=== PATIENT | male | born 1960 | race Two or more races ===

== ENCOUNTER 2018-04-26 17:55 | Inpatient (IN) | payer MEDICARE, MEDICAID ==
[~2018-04-26] VITALS: Ht 165.1 cm; Wt 68.5 kg
[2018-04-27] VITALS (7 sets, daily range): BP systolic 148–199; BP diastolic 67–86
[2018-04-27] MEDS ORDERED: ASPIR 8181 MG ORAL (02:20)
[2018-04-27] MEDS ORDERED: ACETAMINOPHEN325 M1 ORAL (02:20)
[2018-04-27] MEDS ORDERED: CLONIDINE HCL0.1 MG PO (02:46)
[2018-04-27] MEDS ORDERED: DULCOLAX10 MG RC (02:46)
[2018-04-27] MEDS ORDERED: CALCIUM ACETAT668 MG PO (02:46)
[2018-04-27] MEDS ORDERED: COREG3.125 MG ORAL (02:46)
[2018-04-27] MEDS ORDERED: IBUPROFEN600 MG ORAL (02:46)
[2018-04-27] MEDS ORDERED: GLIPIZIDE5 MG ORAL (02:46)
[2018-04-27] MEDS ORDERED: LEXAPRO20 MG ORAL (02:46)
[2018-04-27] MEDS ORDERED: APRESOLINE100 MG ORAL (02:46)
[2018-04-27] MEDS ORDERED: FUROSEMIDE40 MG ORAL (02:46)
[2018-04-27] MEDS ORDERED: TRAVATAN Z5 ML OP (02:46)
[2018-04-27] MEDS ORDERED: NEPHROVITE1 TAB ORAL (02:46)
[2018-04-27] MEDS ORDERED: ATORVASTATIN CA40 MG ORAL (02:46)
[2018-04-27] MEDS ORDERED: Albuterol/Ipratropium 3ml neb HHN PRN (11:00)
[2018-04-27 11:36] LABS: BASOPHILS % (AUTO) 0.2 % (0.0-2.0); EOSINOPHILS % (AUTO) 1.3 % (0.0-3.0); HEMATOCRIT 28.9 % (42.0-52.0); HEMOGLOBIN 9.7 G/DL (14.2-18.0); LYMPHOCYTES % (AUTO) 24.6 % (20.0-45.0); MEAN CORPUSCULAR VOLUME 94 FL (80-99); MONOCYTES % (AUTO) 8.2 % (1.0-10.0); NEUTROPHILS % (AUTO) 65.8 % (45.0-75.0); PLATELET COUNT 187 K/UL (150-450); RED BLOOD COUNT 3.07 M/UL (4.70-6.10); RED CELL DISTRIBUTION WIDTH 11.7 % (11.6-14.8); WHITE BLOOD COUNT 6.7 K/UL (4.8-10.8)
[2018-04-27 12:04] LABS: ALANINE AMINOTRANSFERASE 39 U/L (12-78); ALBUMIN 3.3 G/DL (3.4-5.0); ALBUMIN/GLOBULIN RATIO 0.9 (1.0-2.7); ALKALINE PHOSPHATASE 97 U/L (46-116); ANION GAP 14 mmol/L (5-15); ASPARTATE AMINO TRANSFERASE 25 U/L (15-37); BILIRUBIN,TOTAL 0.5 MG/DL (0.2-1.0); BLOOD UREA NITROGEN 122 mg/dL (7-18); CALCIUM 8.4 MG/DL (8.5-10.1); CARBON DIOXIDE 23 MMOL/L (21-32); CHLORIDE 100 MMOL/L (98-107); CREATININE 13.1 MG/DL (0.55-1.30); POTASSIUM 5.2 MMOL/L (3.5-5.1); SODIUM 136 MMOL/L (136-145)
--- NOTE | 2018-04-27 12:27 | Diagnostic Imaging Report ---
Indication: Cough Comparison: None A single view chest radiograph was obtained. Findings: There is slight prominence of pulmonary vascularity and heart size with peribronchial cuffing noted. There is no airspace disease. Intramedullary sclerosis noted in the proximal right humerus. IMPRESSION: Query mild CHF. Correlate clinically. 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
[2018-04-27] MEDS: cefTRIAXone 2 GM in D5W 110 ML IVPB SCH (14:55)
[2018-04-27] MEDS ORDERED: GlipiZIDE 5mg tab ORAL SCH (16:30)
[2018-04-27] MEDS: Calcium Acetate 667mg Tab ORAL SCH (16:30)
--- NOTE | 2018-04-27 17:31 | Consultation ---
DATE OF CONSULTATION: 04/27/2018 CONSULTING PHYSICIAN: Jamal Oreilly M.D. REFERRING PHYSICIAN: Woody Gurrola M.D. REASON FOR CONSULTATION: 1. Hyperkalemia. 2. End-stage renal disease, on hemodialysis. 3. Anemia of chronic kidney disease. 4. Hypertension. HISTORY OF PRESENT ILLNESS: The patient is a 57-year-old gentleman, who was transferred from [facility] for management of hemodialysis. It seems that the patient at this outlying residence had declined hemodialysis. As such, he was transferred here for further evaluation and care. Upon presentation, the patient was hyperkalemic, anemic, and hypertensive. He was seen currently during his dialysis session, in no acute distress. PAST MEDICAL HISTORY: 1. End-stage renal disease, on hemodialysis. 2. Hypertension. 3. Anemia of chronic kidney disease. 4. Diabetes mellitus. 5. Hyperlipidemia. PAST SURGICAL HISTORY: AV fistula. ALLERGIES: No known drug allergies. FAMILY HISTORY: Positive for diabetes and hypertension. REVIEW OF SYSTEMS: The patient is not cooperating with answering questions. PHYSICAL EXAMINATION: VITAL SIGNS: Blood pressure 185/86, 97% on room air, respiratory rate 19, pulse 78, and temperature 98.3. GENERAL: The patient is awake and alert, not otherwise in distress. HEENT: Extraocular muscles intact. No lymphadenopathy noted. CARDIOVASCULAR: S1, S2. No rubs or gallops. PULMONARY: Clear to auscultation bilaterally. No rales, rhonchi or wheezes. ABDOMINAL: Nondistended and nontender. EXTREMITY: Trace edema bilaterally. LABORATORY DATA: Laboratories dated 04/27/2018, potassium 5.2, sodium 136, BUN 122, creatinine 13.1, and calcium 8.4. White cell count 6.7, hemoglobin 9.7, and platelet count 187,000. ASSESSMENT AND PLAN: 1. Hyperkalemia. Mild in nature. The patient was seen and examined on hemodialysis. 2. Uremia, BUN 122. The patient was seen and examined during his current hemodialysis session, tolerating well. 3. Anemia of chronic kidney disease. Hemoglobin less than 10. We will hold epogen until blood pressure stabilizes. 4. Hypertension. We will address hypertension post hemodialysis session as he is undergoing a 2.5 liters of ultrafiltration. 5. Secondary hyperparathyroidism. We will check phosphorus level. Jamal Oreilly MD DR: BILLIE JOB#: [id number] CC: ARIAN
[2018-04-27] MEDS: Carvedilol 6.25mg Tab ORAL SCH (20:37)
[2018-04-27] MEDS: Atorvastatin 80mg tab ORAL SCH (20:37)
[2018-04-28 00:30] VITALS: BP 100/51
--- NOTE | 2018-04-28 01:01 | History and Physical Report ---
DATE OF ADMISSION: 04/27/2018 SUBJECTIVE: This is a 57-year-old male, who came to the emergency room following a fall, having a mild stroke, uncontrolled high blood pressure and fluid overload and this patient is dialyzed, who is currently in the bed, looks comfortable, mild short of breath, and having some cough. PAST MEDICAL HISTORY: End-stage renal disease, diabetes, generalized weakness, and diabetic neuropathy. MEDICATIONS: He is taking glyburide, sliding scale, Renagel, and lisinopril. ALLERGIES: NKA. PHYSICAL EXAMINATION: GENERAL: This is a young male, who is currently awake, feeling fine, and was found to have episode. VITAL SIGNS: Blood pressure is 160/90 and pulse is 74. His blood pressure is varying probably 160/90 to 180/90, pulse 74, and respirations 18. No fevers. HEENT: NAD. CHEST: Bilaterally few crackles. CARDIOVASCULAR: Regular rhythm. No gallop. No murmur. ABDOMEN: Soft. Positive bowel sounds. Nontender. EXTREMITIES: CCE. NEUROLOGICAL: Generalized weakness. LABORATORY DATA: The patient's labs are pending. ASSESSMENT: 1. Fluid overload. 2. Congestive heart failure. 3. End-stage renal disease, on hemodialysis. 4. Hypoglycemia. 5. Diabetes. 6. Generalized . PLAN: 1. We will start dialyzing, and we will and start sliding scale and continue to Accu-Chek. 2. Continue bronchodilator treatments. 3. Increase Coreg because his blood pressure is high. 4. Also continue clonidine p.r.n. 5. Discussed with the charge nurse and consider Nephrology consult. Woody Gurrola M.D. DR: FRANCES JOB#: [id number] CC: ARIAN
[2018-04-28 04:08] VITALS: BP 131/60
[2018-04-28] MEDS: Calcium Acetate 667mg Tab ORAL SCH ×2 (05:51→15:55)
[2018-04-28 07:36] LABS: BASOPHILS % (AUTO) 0.5 % (0.0-2.0); EOSINOPHILS % (AUTO) 2.9 % (0.0-3.0); HEMOGLOBIN 9.8 G/DL (14.2-18.0); LYMPHOCYTES % (AUTO) 26.4 % (20.0-45.0); MEAN CORPUSCULAR VOLUME 94 FL (80-99); MONOCYTES % (AUTO) 9.8 % (1.0-10.0); NEUTROPHILS % (AUTO) 60.5 % (45.0-75.0); PLATELET COUNT 180 K/UL (150-450); RED BLOOD COUNT 3.09 M/UL (4.70-6.10); RED CELL DISTRIBUTION WIDTH 11.3 % (11.6-14.8); WHITE BLOOD COUNT 5.1 K/UL (4.8-10.8)
[2018-04-28 08:00] VITALS: BP 166/93
[2018-04-28 08:04] LABS: ANION GAP 10 mmol/L (5-15); BLOOD UREA NITROGEN 65 mg/dL (7-18); CALCIUM 8.4 MG/DL (8.5-10.1); CARBON DIOXIDE 32 MMOL/L (21-32); CHLORIDE 100 MMOL/L (98-107); CREATININE 8.8 MG/DL (0.55-1.30); POTASSIUM 4.4 MMOL/L (3.5-5.1); SODIUM 141 MMOL/L (136-145)
[2018-04-28] MEDS: Nephrovite tab (Rena-Vite) ORAL SCH (08:09)
[2018-04-28] MEDS: Furosemide 40mg tab ORAL SCH (08:09)
[2018-04-28] MEDS: Carvedilol 6.25mg Tab ORAL SCH ×2 (08:10→20:15)
--- NOTE | 2018-04-28 09:38 | Nephrology Progress Note ---
Assessment/Plan Assessment/Plan 1. ESRD- Plan for HD Sat. BUN much improved post HD yesterday 2. Anemia of CKD - EPO SQ x 1 today 3. HTN- improved. Continue current regimen 4. SHPT- add po phos binder with meals Subjective Date patient seen: Apr 28, 2018 Time patient seen: 09:36 Allergies: Coded Allergies: No Known Allergies (Unverified , 04/27/18) All Systems: reviewed and negative except above Subjective Patient resting well in no distress Objective Last 24 Hour Vital Signs Date Time Temp Pulse Resp B/P (MAP) Pulse Ox O2 Delivery O2 Flow Rate FiO2 04/28/18 08:12 166/93 04/28/18 08:10 65 166/93 04/28/18 04:08 97.8 69 20 131/60 96 Room Air 97.8 04/28/18 00:30 98.0 63 20 100/51 98 Room Air 98.0 04/27/18 20:37 61 148/79 04/27/18 20:02 97.9 61 19 148/79 99 Room Air 97.9 04/27/18 16:00 98.3 78 19 185/86 97 Room Air 98.3 04/27/18 15:22 Room Air 04/27/18 14:00 98.3 80 19 180/86 97 Room Air 98.3 04/27/18 13:32 170/86 04/27/18 12:00 98.4 73 19 170/86 97 Room Air 98.4 Intake and Output 04/27/18 04/28/18 19:00 07:00 Output Total 2700 ml Balance -2700 ml Output Hemodialysis UF 2700 ml # Voids 1 Laboratory Tests 04/27/18 11:00: White Blood Count 6.7, Red Blood Count 3.07L, Hemoglobin 9.7L, Hematocrit 28.9L , Mean Corpuscular Volume 94, Mean Corpuscular Hemoglobin 31.5H, Mean Corpuscular Hemoglobin Concent 33.4, Red Cell Distribution Width 11.7, Platelet Count 187, Mean Platelet Volume 6.5, Neutrophils (%) (Auto) 65.8, Lymphocytes (% ) (Auto) 24.6, Monocytes (%) (Auto) 8.2, Eosinophils (%) (Auto) 1.3, Basophils ( %) (Auto) 0.2, Sodium Level 136, Potassium Level 5.2H, Chloride Level 100, Carbon Dioxide Level 23, Anion Gap 14, Blood Urea Nitrogen 122H, Creatinine 13.1H, Estimat Glomerular Filtration Rate 4.0, Glucose Level 80, Calcium Level 8.4L, Total Bilirubin 0.5, Aspartate Amino Transf (AST/SGOT) 25, Alanine Aminotransferase (ALT/SGPT) 39, Alkaline Phosphatase 97, Troponin I 0.000, Pro-B -Type Natriuretic Peptide 6002H, Total Protein 7.0, Albumin 3.3L, Globulin 3.7, Albumin/Globulin Ratio 0.9L 04/28/18 06:15: White Blood Count 5.1, Red Blood Count 3.09L, Hemoglobin 9.8L, Hematocrit 29.0L , Mean Corpuscular Volume 94, Mean Corpuscular Hemoglobin 31.7H, Mean Corpuscular Hemoglobin Concent 33.7, Red Cell Distribution Width 11.3L, Platelet Count 180, Mean Platelet Volume 7.7, Neutrophils (%) (Auto) 60.5, Lymphocytes (%) (Auto) 26.4, Monocytes (%) (Auto) 9.8, Eosinophils (%) (Auto) 2.9, Basophils (%) (Auto) 0.5, Sodium Level 141, Potassium Level 4.4, Chloride Level 100, Carbon Dioxide Level 32, Anion Gap 10, Blood Urea Nitrogen 65H, Creatinine 8.8H, Estimat Glomerular Filtration Rate 6.3, Glucose Level 90, Calcium Level 8.4L, Phosphorus Level 5.2H Height (Feet): 5 Height (Inches): 5.00 Weight (Pounds): 152 General Appearance: no apparent distress, alert EENT: normal ENT inspection Neck: normal alignment, supple Cardiovascular: normal rate, regular rhythm Respiratory/Chest: lungs clear, normal breath sounds Abdomen: non tender, soft Edema: no edema noted Arm (L), no edema noted Arm (R), no edema noted Leg (L), no edema noted Leg (R), no edema noted Pedal (L), no edema noted Pedal (R), no edema noted Generalized Jamal Oreilly M.D. Apr 28, 2018 09:38
[2018-04-28 12:00] VITALS: BP 182/72
[2018-04-28] MEDS: cefTRIAXone 2 GM in D5W 110 ML IVPB SCH (12:46)
--- NOTE | 2018-04-28 13:10 | Cardiology Report ---
APPROVED REPORT EKG Measurement Heart [id number] Sinus rhythm with premature atrial complexes in a pattern of bigeminy Rightward axis Borderline ECG
[2018-04-28 16:00] VITALS: BP 172/87
[2018-04-28 20:00] VITALS: BP 159/82
[2018-04-28] MEDS: Atorvastatin 80mg tab ORAL SCH (20:14)
[2018-04-28] MEDS ORDERED: Epogen (for ESRD on dialysis) SUBQ SCH (21:00)
[2018-04-29] VITALS: BP 187/70
--- NOTE | 2018-04-29 01:45 | Progress Note ---
DATE: 04/28/2018 SUBJECTIVE: This is an elderly male, sitting in the bed, comfortable, short of breath is improving. OBJECTIVE: VITAL SIGNS: Blood pressure is 130/70, pulse 60s, respirations 18, no fever. HEENT: NAD. CHEST: Bilaterally few crackles. CARDIOVASCULAR: Regular rhythm. No gallop, no murmur. ABDOMEN: Soft. Positive bowel sounds. Nontender. EXTREMITIES: No edema. GENITOURINARY: Deferred. LABORATORY DATA: Laboratory examination . ASSESSMENT: 1. Fluid overload. 2. Congestive heart failure. 3. Hypertension. 4. Diabetes. 5. Generalized weakness. PLAN: We recommend to continue hemodialysis. Continue current medical treatment. PT and OT. Check labs. Woody Gurrola M.D. DR: DANGELO JOB#: [id number] CC:
[2018-04-29 04:00] VITALS: BP 180/69
[2018-04-29] MEDS: Calcium Acetate 667mg Tab ORAL SCH ×2 (06:26→15:49)
[2018-04-29 08:00] VITALS: BP 195/84
--- NOTE | 2018-04-29 08:24 | Nephrology Progress Note ---
Assessment/Plan Assessment/Plan 1. ESRD- HD ordered for today - BUN and K+ much improved after HD on - OK for DC from renal point after HD today completed 2. Anemia of CKD - s/p EPO SQ 3. HTN- will adjust po meds today 4. SHPT-po phos binder with meals Subjective Date patient seen: Apr 29, 2018 Time patient seen: 08:22 ROS Limited/Unobtainable: No Allergies: Coded Allergies: No Known Allergies (Unverified , 04/27/18) Subjective Patient resting well. Syas feels well. No CP or SOB Objective Last 24 Hour Vital Signs Date Time Temp Pulse Resp B/P (MAP) Pulse Ox O2 Delivery O2 Flow Rate FiO2 04/29/18 08:02 96 Room Air 21 04/29/18 08:00 Room Air 21 04/29/18 07:54 67 16 Room Air 21 04/29/18 06:26 180/69 04/29/18 04:00 98.3 59 19 180/69 97 Room Air 98.3 04/29/18 00:00 98.4 65 19 187/70 98 98.4 04/28/18 23:41 187/70 04/28/18 21:08 98 Room Air 04/28/18 21:07 64 16 Room Air 21 04/28/18 20:15 65 179/83 04/28/18 20:00 98.8 65 19 159/82 100 Room Air 98.8 04/28/18 16:00 98.9 61 172/87 98.9 04/28/18 15:55 172/87 04/28/18 12:00 99.0 76 182/72 99.0 04/28/18 11:38 60 16 Room Air 21 Intake and Output 04/28/18 04/29/18 19:00 07:00 Intake Total 480 ml 120 ml Balance 480 ml 120 ml Intake Oral 480 ml 120 ml Height (Feet): 5 Height (Inches): 5.00 Weight (Pounds): 158 General Appearance: no apparent distress, alert EENT: normal ENT inspection Neck: normal alignment, supple Cardiovascular: normal rate, regular rhythm Respiratory/Chest: lungs clear, normal breath sounds Abdomen: non tender, soft Edema: no edema noted Arm (L), no edema noted Arm (R), no edema noted Leg (L), no edema noted Leg (R), no edema noted Pedal (L), no edema noted Pedal (R), no edema noted Generalized Jamal Oreilly M.D. Apr 29, 2018 08:24
[2018-04-29] MEDS: Carvedilol 6.25mg Tab ORAL SCH ×2 (08:34→20:13)
[2018-04-29] MEDS: Nephrovite tab (Rena-Vite) ORAL SCH (08:34)
[2018-04-29] MEDS: Furosemide 40mg tab ORAL SCH (08:34)
[2018-04-29 12:00] VITALS: BP 143/47
[2018-04-29] MEDS: cefTRIAXone 2 GM in D5W 110 ML IVPB SCH (12:59)
--- NOTE | 2018-04-29 13:48 | Physician Query ---
--------- THIS DOCUMENT IS A PERMANENT PART OF THE MEDICAL RECORD --------- PLEASE COMPLETE THE DOCUMENT BEFORE SIGNING Dear Dr. Gurrola Date:04/29/2018 Healthcare Specialist/CDS Name: Kate Groves Healthcare Specialist / CDS Phone # [phone] Exercise your independent professional judgment when responding to query. Question asked do not imply a particular answer is desired/expected Clinical Documentation States: "Heart Failure / CHF" documented in H&P and progress notes Clinical Findings Show: pro BNP: 6002, Diuretic: Furosemide Can you Please Clarify the specificity of CHF: Acuity [] Acute [] Chronic [] Acute on Chronic Type [] Systolic [] Diastolic [] Systolic & Diastolic (Combined) [] Left Heart failure [] Other: Etiology [] CHF due to Hypertension [] Cardiomyopathy [] Valvular Heart Disease [] Coronary Artery Disease [] Unable to determine [] Other: Condition Present on Admission: [] Yes [] No []Clinically Undeterminable Please also document in your Progress Notes and/or Discharge Summary and indicate if the condition was present on admission. ARIAN
[2018-04-29 16:00] VITALS: BP 148/53
--- NOTE | 2018-04-29 18:00 | Progress Note ---
DATE: 04/28/2018 SUBJECTIVE: The patient is an elderly male who is currently awake, feeling better, has been dialyzed. Blood pressure is better controlled now. OBJECTIVE: VITAL SIGNS: Blood pressure is 140/90, pulse 60, respiratory rate 18. No fever. SKIN: Good skin turgor. CHEST: Bilaterally few crackles on bases. CARDIOVASCULAR: Regular rhythm. ABDOMEN: Soft. EXTREMITIES: CCE. NEUROLOGIC: No focal deficits. ASSESSMENT: 1. Fluid overload. 2. Congestive heart failure. 3. Uncontrolled blood pressure . 4. Endstage renal disease, on hemodialysis 5. Generalized weakness. PLAN: We will currently continue current treatment. Discharge plan to alf. Woody Gurrola M.D. DR: Sara JOB#: [id number] CC:
[2018-04-29 20:00] VITALS: BP 157/67
[2018-04-29] MEDS: Atorvastatin 80mg tab ORAL SCH (20:13)
[2018-04-30] VITALS (7 sets, daily range): BP systolic 137–166; BP diastolic 60–72
[2018-04-30] MEDS: Calcium Acetate 667mg Tab ORAL SCH ×2 (06:35→17:25)
[2018-04-30 07:13] LABS: ANION GAP 7 mmol/L (5-15); BLOOD UREA NITROGEN 64 mg/dL (7-18); CALCIUM 8.5 MG/DL (8.5-10.1); CARBON DIOXIDE 33 MMOL/L (21-32); CHLORIDE 99 MMOL/L (98-107); CREATININE 8.3 MG/DL (0.55-1.30); POTASSIUM 4.7 MMOL/L (3.5-5.1); SODIUM 139 MMOL/L (136-145)
[2018-04-30] MEDS: Nephrovite tab (Rena-Vite) ORAL SCH (09:05)
[2018-04-30] MEDS: Carvedilol 6.25mg Tab ORAL SCH ×2 (09:05→21:00)
[2018-04-30] MEDS: Furosemide 40mg tab ORAL SCH (09:06)
--- NOTE | 2018-04-30 09:28 | Nephrology Progress Note ---
Assessment/Plan Assessment/Plan 1. ESRD- will place patient on MWF schedule now - BUN and K+ much improved after HD - OK for DC from renal point 2. Anemia of CKD - s/p EPO SQ 3. HTN- improved. Add Lisinopril 4. SHPT-po phos binder with meals Subjective Date patient seen: Apr 30, 2018 Time patient seen: 09:26 ROS Limited/Unobtainable: No Allergies: Coded Allergies: No Known Allergies (Unverified , 04/27/18) All Systems: reviewed and negative except above Subjective Patient resting well. No CP or SOB Objective Last 24 Hour Vital Signs Date Time Temp Pulse Resp B/P (MAP) Pulse Ox O2 Delivery O2 Flow Rate FiO2 04/30/18 09:06 66 165/60 04/30/18 09:05 66 165/60 04/30/18 08:00 97.7 66 20 165/60 98 Room Air 97.7 04/30/18 04:00 98.3 60 19 153/71 96 Room Air 98.3 04/30/18 00:00 98.6 63 19 148/65 95 Room Air 98.6 04/29/18 20:13 65 157/67 04/29/18 20:00 99.2 65 19 157/67 97 Room Air 99.2 04/29/18 19:30 62 18 Room Air 21 04/29/18 16:00 98.3 60 19 148/53 97 Room Air 98.3 04/29/18 14:18 Room Air 21 04/29/18 12:00 98.0 60 19 143/47 98 Room Air 98.0 04/29/18 09:35 Room Air 21 Intake and Output 04/29/18 04/30/18 19:00 07:00 Intake Total 590 ml 240 ml Output Total 2700 ml 250 ml Balance -2110 ml -10 ml Intake Oral 480 ml 240 ml IV Total 110 ml Output Urine Total 200 ml 250 ml Hemodialysis UF 2500 ml Laboratory Tests 04/30/18 05:45: Sodium Level 139, Potassium Level 4.7, Chloride Level 99, Carbon Dioxide Level 33H, Anion Gap 7, Blood Urea Nitrogen 64H, Creatinine 8.3H, Estimat Glomerular Filtration Rate 6.7, Glucose Level 86, Calcium Level 8.5 Height (Feet): 5 Height (Inches): 5.00 Weight (Pounds): 158 General Appearance: no apparent distress, alert EENT: normal ENT inspection Neck: normal alignment, supple Cardiovascular: normal rate, regular rhythm Respiratory/Chest: normal breath sounds, no respiratory distress Abdomen: non tender, soft Extremities: non-tender, normal inspection Edema: no edema noted Arm (L), no edema noted Arm (R), no edema noted Leg (L), no edema noted Leg (R), no edema noted Pedal (L), no edema noted Pedal (R), no edema noted Generalized Jamal Oreilly M.D. Apr 30, 2018 09:28
[2018-04-30] MEDS: Lisinopril 20mg tab ORAL SCH (12:04)
[2018-04-30] MEDS: cefTRIAXone 2 GM in D5W 110 ML IVPB SCH (12:08)
--- NOTE | 2018-04-30 12:59 | Infectious Diseases Prog Note ---
Assessment/Plan Problems: (1) Acute bronchitis Assessment & Plan: will start levaquin for five days, continue bronchodilators (2) CHF (congestive heart failure) Assessment & Plan: continue HD as per renal, monitor weight (3) Diabetes mellitus Assessment & Plan: recommend tight glycemic control to keep blood glucose between 100-140 (4) Fluid overload Assessment & Plan: improving with HD , renal is following Subjective Allergies: Coded Allergies: No Known Allergies (Unverified , 04/27/18) Objective Vital Signs Last 24 Hour Vital Signs Date Time Temp Pulse Resp B/P (MAP) Pulse Ox O2 Delivery O2 Flow Rate FiO2 04/30/18 12:04 137/62 04/30/18 09:06 66 165/60 04/30/18 09:05 66 165/60 04/30/18 08:00 97.7 66 20 165/60 98 Room Air 97.7 04/30/18 04:00 98.3 60 19 153/71 96 Room Air 98.3 04/30/18 00:00 98.6 63 19 148/65 95 Room Air 98.6 04/29/18 20:13 65 157/67 04/29/18 20:00 99.2 65 19 157/67 97 Room Air 99.2 04/29/18 19:30 62 18 Room Air 21 04/29/18 16:00 98.3 60 19 148/53 97 Room Air 98.3 04/29/18 14:18 Room Air 21 Height (Feet): 5 Height (Inches): 5.00 Weight (Pounds): 158 Laboratory Tests Test 04/30/18 05:45 Sodium Level 139 MMOL/L (136-145) Potassium Level 4.7 MMOL/L (3.5-5.1) Chloride Level 99 MMOL/L (98-107) Carbon Dioxide Level 33 MMOL/L (21-32) H Anion Gap 7 mmol/L (5-15) Blood Urea Nitrogen 64 mg/dL (7-18) H Creatinine 8.3 MG/DL (0.55-1.30) H Estimat Glomerular Filtration Rate 6.7 mL/min (>60) Glucose Level 86 MG/DL (74-106) Calcium Level 8.5 MG/DL (8.5-10.1) Current Medications Medications (Trade) Dose Ordered Sig/Lis Route PRN Reason Start Time Stop Time Status Last Admin Dose Admin Acetaminophen (Tylenol) 650 mg Q4H PRN ORAL Mild Pain/Temp > 100.5 04/27/18 10:45 05/27/18 10:44 Albuterol/ Ipratropium (Albuterol/ Ipratropium) 3 ml Q6H PRN HHN Shortness of Breath 04/27/18 11:00 05/02/18 10:59 Amlodipine Besylate (Norvasc) 10 mg DAILY ORAL 04/29/18 09:00 05/29/18 08:59 04/30/18 09:06 Atorvastatin Calcium (Lipitor) 80 mg BEDTIME ORAL 04/27/18 21:00 05/27/18 20:59 04/29/18 20:13 Bisacodyl (Dulcolax) 10 mg DAILYPRN PRN RECTAL Constipation 04/27/18 10:45 05/27/18 10:44 Calcium Acetate (Phoslo) 667 mg BIAC ORAL 04/27/18 16:30 05/27/18 16:29 04/30/18 06:35 Carvedilol (Coreg) 6.25 mg EVERY 12 HOURS ORAL 04/27/18 21:00 05/27/18 20:59 04/30/18 09:05 Ceftriaxone Sodium 2 gm/ Dextrose 110 ml @ 220 mls/hr Q24H IVPB 04/27/18 12:00 05/04/18 11:59 04/30/18 12:08 Clonidine HCl (Catapres Tab) 0.1 mg Q6H PRN ORAL For High Blood Pressure 04/27/18 10:45 05/27/18 10:44 04/29/18 06:26 Epoetin Luis (Procrit (for ESRD on dialysis)) 5,000 units TUE-TUE-TUE SUBQ 04/28/18 21:00 05/28/18 20:59 04/28/18 20:15 Escitalopram Oxalate (Lexapro) 20 mg DAILY ORAL 04/28/18 09:00 05/28/18 08:59 04/30/18 09:06 Furosemide (Lasix) 40 mg DAILY ORAL 04/28/18 09:00 05/28/18 08:59 04/30/18 09:06 Lisinopril (Prinivil) 20 mg DAILY ORAL 7/1/18 10:00 05/30/18 09:59 04/30/18 12:04 Vitamin B Complex/ Vit C/Folic Acid (Nephrovite) 1 tab DAILY ORAL 04/28/18 09:00 05/28/18 08:59 04/30/18 09:05 Ivan Guthrie M.D. Apr 30, 2018 12:59
[2018-04-30] MEDS: Atorvastatin 80mg tab ORAL SCH ×2 (21:00→21:03)
--- NOTE | 2018-04-30 22:00 | Consultation ---
DATE OF CONSULTATION: INFECTIOUS DISEASES CONSULTATION CONSULTING PHYSICIAN: Ivan Guthrie M.D. REQUESTING PHYSICIAN: Woody Gurrola M.D. REASON FOR CONSULTATION: Cough productive, possible pneumonia and bronchitis, recommendation for antibiotics treatment. HISTORY OF PRESENT ILLNESS: The patient is a 57-year-old gentleman, who was transferred from [facility] for cough, shortness of breath, congestion, and for further evaluation. The patient had history of end-stage renal disease, on hemodialysis and anemia of chronic disease with hypertension, which was not well controlled. The patient was started on IV ceftriaxone in the emergency room and Infectious Disease consultation was requested for antibiotics treatment and further management. The patient as I said has been coughing, cough productive of yellowish phlegm. No fever or chills. No recent travel. No sick contact. PAST MEDICAL HISTORY: Significant for end-stage renal disease, on hemodialysis; hypertension; anemia of chronic disease; diabetes; and hyperlipidemia. PAST SURGICAL HISTORY: He had AV fistula placement. MEDICATIONS: The patient received ceftriaxone in the emergency room. For the rest of his medications, please refer to MAR. ALLERGIES: He has no known drug allergy. SOCIAL HISTORY: The patient lives at [facility]. No recent drugs, tobacco, or alcohol. FAMILY HISTORY: Significant for diabetes and hypertension. REVIEW OF SYSTEMS: A 14-point of system reviewed were all negative apart from the one I mentioned above in my History and Physical. PHYSICAL EXAMINATION: VITAL SIGNS: Temperature 97.7 degrees, pulse 66, respirations 20, blood pressure 165/60, and saturation 98% on room air. GENERAL: A middle-aged male, lying in bed, awake, alert, not in distress. HEENT: Normocephalic and atraumatic. Pupils are reactive to light. Moist oral mucosa. No exudate or thrush. NECK: Supple. No lymphadenopathy. CARDIOVASCULAR: Regular rate and rhythm. No murmur or gallop. LUNGS: He had wheezing and diminished breathing sounds at the bases. ABDOMEN: Soft, nontender, and nondistended. Normal bowel sounds. No hepatosplenomegaly. No ascites. EXTREMITIES: No edema. No cyanosis. LABORATORY AND DIAGNOSTIC DATA: Labs showed white count of 5.1, hemoglobin of 9.8, and platelet count of 180,000. BUN of 64 and creatinine of 8.3. Microbiology, rectum screening was positive for VRE and nasal screening was positive for MRSA. 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 ASSESSMENT AND RECOMMENDATION: 1. Acute bronchitis. We will start levofloxacin orally empiric coverage. Stop ceftriaxone. We will treat for five more days. Continue bronchodilator as needed. 2. Congestive heart failure with possible exacerbation. Continue hemodialysis as per Renal. Monitor weight. 3. Diabetes. Recommend tight glycemic control to keep blood glucose between 100 to 140. 4. Fluid overloads improving with hemodialysis. Renal team is following. Thank you for the consult. Infectious Disease will continue to follow. Ivan Guthrie M.D. DR: Doug JOB#: [id number] CC:
[2018-05-01 04:00] VITALS: BP 148/60
[2018-05-01] MEDS: Calcium Acetate 667mg Tab ORAL SCH (05:48)
--- NOTE | 2018-05-01 08:59 | Nephrology Progress Note ---
Assessment/Plan Assessment/Plan 1. ESRD- TTS Sat per patient request - OK for DC from renal point 2. Anemia of CKD - s/p EPO SQ x 1 3. HTN- improved. Added Lisinopril 4. SHPT-po phos binder with meals Subjective Date patient seen: May 01, 2018 Time patient seen: 08:56 ROS Limited/Unobtainable: No Allergies: Coded Allergies: No Known Allergies (Unverified , 04/27/18) Subjective Patient resting well. No CP or SOB Objective Last 24 Hour Vital Signs Date Time Temp Pulse Resp B/P (MAP) Pulse Ox O2 Delivery O2 Flow Rate FiO2 05/01/18 04:00 98.0 65 20 148/60 97 Room Air 98.0 04/30/18 23:50 97.7 63 20 162/66 97 Room Air 97.7 04/30/18 21:03 166/72 04/30/18 21:00 56 166/72 04/30/18 20:38 70 18 Room Air 21 04/30/18 20:00 97.5 60 18 166/72 99 Room Air 97.5 04/30/18 16:00 97.3 62 20 146/72 98 Room Air 97.3 04/30/18 12:04 137/62 04/30/18 12:00 97.7 66 20 137/62 98 Room Air 97.7 04/30/18 09:06 66 165/60 04/30/18 09:05 66 165/60 Intake and Output 04/30/18 05/01/18 19:00 07:00 Intake Total 310 ml 500 ml Balance 310 ml 500 ml Intake Oral 200 ml 500 ml IV Total 110 ml # Voids 2 Height (Feet): 5 Height (Inches): 5.00 Weight (Pounds): 154 General Appearance: no apparent distress, alert EENT: normal ENT inspection Neck: normal alignment, supple Cardiovascular: normal rate, regular rhythm Respiratory/Chest: lungs clear, normal breath sounds Abdomen: non tender, soft Edema: no edema noted Arm (L), no edema noted Arm (R), no edema noted Leg (L), no edema noted Leg (R), no edema noted Pedal (L), no edema noted Pedal (R), no edema noted Generalized Jamal Oreilly M.D. May 01, 2018 08:59
[2018-05-01 09:00] VITALS: BP 183/74
[2018-05-01] MEDS ORDERED: Levofloxacin 500mg tab ORAL ONE (09:00)
[2018-05-01] MEDS: Nephrovite tab (Rena-Vite) ORAL SCH (09:41)
[2018-05-01] MEDS: Carvedilol 6.25mg Tab ORAL SCH (09:41)
[2018-05-01] MEDS: Furosemide 40mg tab ORAL SCH (09:41)
[2018-05-01] MEDS: Lisinopril 20mg tab ORAL SCH (09:41)
[2018-05-01 10:04] LABS: ANION GAP 11 mmol/L (5-15); BLOOD UREA NITROGEN 78 mg/dL (7-18); CALCIUM 8.8 MG/DL (8.5-10.1); CARBON DIOXIDE 30 MMOL/L (21-32); CHLORIDE 98 MMOL/L (98-107); CREATININE 10.2 MG/DL (0.55-1.30); POTASSIUM 4.5 MMOL/L (3.5-5.1); SODIUM 139 MMOL/L (136-145)
[2018-05-01] MEDS ORDERED: LEVAQUIN250 M1 ORAL (10:34)
[2018-05-01 12:00] VITALS: BP 138/45
[2018-05-01 13:43] VITALS: BP 160/61
--- NOTE | 2018-05-01 14:23 | Infectious Diseases Prog Note ---
Assessment/Plan Problems: (1) Acute bronchitis Assessment & Plan: continue levaquin for five days total with bronchodilators (2) CHF (congestive heart failure) Assessment & Plan: continue HD as per renal, monitor weight (3) Diabetes mellitus Assessment & Plan: recommend tight glycemic control to keep blood glucose between 100-140 (4) Fluid overload Assessment & Plan: improving with HD , renal is following Subjective Constitutional: Reports: no symptoms HEENT: Reports: no symptoms Respiratory: Reports: no symptoms Breasts: Reports: no symptoms Cardiovascular: Reports: no symptoms Gastrointestinal/Abdominal: Reports: no symptoms Genitourinary: Reports: no symptoms Neurologic: Reports: no symptoms Psychiatric: Reports: no symptoms Skin: Reports: no symptoms Endocrine: Reports: no symptoms Hematologic: Reports: no symptoms Musculoskeletal: Reports: no symptoms Allergies: Coded Allergies: No Known Allergies (Unverified , 04/27/18) Objective Vital Signs Last 24 Hour Vital Signs Date Time Temp Pulse Resp B/P (MAP) Pulse Ox O2 Delivery O2 Flow Rate FiO2 05/01/18 13:43 160/61 05/01/18 12:00 98.7 61 20 138/45 98 Room Air 98.7 05/01/18 09:41 183/74 05/01/18 09:41 60 183/74 05/01/18 09:41 60 183/74 05/01/18 09:00 98.3 60 20 183/74 97 98.3 05/01/18 08:13 66 18 Room Air 21 05/01/18 04:00 98.0 65 20 148/60 97 Room Air 98.0 04/30/18 23:50 97.7 63 20 162/66 97 Room Air 97.7 04/30/18 21:03 166/72 04/30/18 21:00 56 166/72 04/30/18 20:38 70 18 Room Air 21 04/30/18 20:00 97.5 60 18 166/72 99 Room Air 97.5 04/30/18 16:00 97.3 62 20 146/72 98 Room Air 97.3 Height (Feet): 5 Height (Inches): 5.00 Weight (Pounds): 151 General Appearance: WD/WN, no acute distress HEENT: normocephalic, atraumatic, anicteric, mucous membranes moist, PERRL Respiratory/Chest: chest wall non-tender, lungs clear, normal breath sounds, no respiratory distress, no accessory muscle use Cardiovascular: normal peripheral pulses, normal rate, regular rhythm, no gallop/murmur, no JVD Abdomen: normal bowel sounds, soft, non tender, no organomegaly, non distended , no mass, no scars Extremities: no cyanosis, no clubbing Skin: no rash, no lesions, no ulcers Neurologic/Psychiatric: alert, responsive Laboratory Tests Test 05/01/18 09:02 Sodium Level 139 MMOL/L (136-145) Potassium Level 4.5 MMOL/L (3.5-5.1) Chloride Level 98 MMOL/L (98-107) Carbon Dioxide Level 30 MMOL/L (21-32) Anion Gap 11 mmol/L (5-15) Blood Urea Nitrogen 78 mg/dL (-18) H Creatinine 10.2 MG/DL (0.55-1.30) H Estimat Glomerular Filtration Rate 5.3 mL/min (>60) Glucose Level 71 MG/DL (74-106) L Calcium Level 8.8 MG/DL (8.5-10.1) Current Medications Medications (Trade) Dose Ordered Sig/Lis Route PRN Reason Start Time Stop Time Status Last Admin Dose Admin Acetaminophen (Tylenol) 650 mg Q4H PRN ORAL Mild Pain/Temp > 100.5 04/27/18 10:45 05/27/18 10:44 Albuterol/ Ipratropium (Albuterol/ Ipratropium) 3 ml Q6H PRN HHN Shortness of Breath 04/27/18 11:00 05/02/18 10:59 Amlodipine Besylate (Norvasc) 10 mg DAILY ORAL 04/29/18 09:00 05/29/18 08:59 05/01/18 09:41 Atorvastatin Calcium (Lipitor) 80 mg BEDTIME ORAL 04/27/18 21:00 05/27/18 20:59 04/29/18 20:13 Bisacodyl (Dulcolax) 10 mg DAILYPRN PRN RECTAL Constipation 04/27/18 10:45 05/27/18 10:44 Calcium Acetate (Phoslo) 667 mg BIAC ORAL 04/27/18 16:30 05/27/18 16:29 05/01/18 05:48 Carvedilol (Coreg) 6.25 mg EVERY 12 HOURS ORAL 04/27/18 21:00 05/27/18 20:59 05/01/18 09:41 Clonidine HCl (Catapres Tab) 0.1 mg Q6H PRN ORAL For High Blood Pressure 04/27/18 10:45 05/27/18 10:44 05/01/18 13:43 Epoetin Luis (Procrit (for ESRD on dialysis)) 5,000 units TUE- SUBQ 04/28/18 21:00 05/28/18 20:59 04/28/18 20:15 Escitalopram Oxalate (Lexapro) 20 mg DAILY ORAL 04/28/18 09:00 05/28/18 08:59 05/01/18 09:42 Furosemide (Lasix) 40 mg DAILY ORAL 04/28/18 09:00 05/28/18 08:59 05/01/18 09:41 Levofloxacin (Levaquin) 250 mg DAILY ORAL 05/02/18 09:00 05/09/18 08:59 Lisinopril (Prinivil) 20 mg DAILY ORAL 04/30/18 10:00 05/30/18 09:59 05/01/18 09:41 Vitamin B Complex/ Vit C/Folic Acid (Nephrovite) 1 tab DAILY ORAL 04/28/18 09:00 05/28/18 08:59 05/01/18 09:41 Ivan Guthrie M.D. May 01, 2018 14:23
--- NOTE | 2018-05-01 22:30 | Progress Note ---
DATE: 05/01/2018 SUBJECTIVE: This is a 57-year-old male, who came to the emergency room for having short of breath, CHF decompensated, and fluid overload. The patient was admitted on medical floor. The patient was given hemodialysis and Lasix. He was clinically improved. The patient had a Nephrology consult. PHYSICAL EXAMINATION: CHEST: Bilaterally clear. CARDIOVASCULAR: Regular rhythm. ABDOMEN: Soft. EXTREMITIES: CCE. ASSESSMENT: 1. Fluid overload. 2. Congestive heart failure. 3. Hypertension. 4. Diabetes. PLAN: We will currently continue current treatment. Discharge plan to SNF and outpatient hemodialysis. Woody Gurrola M.D. DR: DANGELO JOB#: [id number] CC:
--- NOTE | 2018-05-04 08:09 | Discharge Summary ---
Discharge Summary Discharge Summary _ DATE OF ADMISSION: 04/27/2018 DATE OF DISCHARGE: 05/01/2018 REASON FOR ADMISSION: 57 years old male with past medical history significant for end-stage renal disease, on hemodialysis, hypertension diabetes. anemia. [facility] for refusal of hemodialysis. Upon evaluation patient found to have hyperkalemia , uremia, anemia, hypertension and hypoglycemia. BP 199/67. K-5.2, BUN- 122 creatinine- 13.1. Troponin was negative, pro BNP 6002 . Elevated phosphorus and low calcium. EKG revealed sinus rhythm with premature atrial complexes. Pulse oximetry on room air was stable. Chest x-ray revealed slight prominence of pulmonary vasculature. Patient admitted with diagnosis of fluid overload, end-stage renal disease, on hemodialysis; uremia, hypertension, anemia of chronic kidney disease, diabetes with hypoglycemia, secondary hyperparathyroidism CONSULTANTS: ID specialist Dr. Guthrie cleat layer Dr.De Pierce [facility] COURSE: Patient admitted. Nephrology consult was requested. Patient undergone urgent hemodialysis. Renal parameters and electrolytes were closely monitored, electrolytes were corrected as needed. Prior to discharge , stable electrolytes, BUN78, creatinine 10.2. Supplemental oxygen provided as needed to keep pulse oximetry above 92%. Pulmonary toilet and hand held nebulizing therapy with bronchodilator provided on as needed basis. Patient was on empiric antibiotic. under ID recommendations. Patient was afebrile no leukocytosis Blood pressure was managed with multiple regimen of calcium channel derian, beta derian, and estuardo inhibitor was added to improve control. Blood pressure stabilized prior to discharge. Blood sugar was closely monitored, no further episodes of hypoglycemia. Home medications resumed. Patient started on phosphorus binders with meals due to secondary hyperparathyroidism as per cleat layer's recommendation. Hemoglobin and hematocrit were closely monitored , remained on the baseline, no need for transfusion, goal to keep hemoglobin above 7 . Patient was on Epogen. Patient was encouraged compliance with hemodialysis. Patient clinically improved and was stable for discharge back to [facility] FINAL DIAGNOSES: Fluid overload( secondary to noncompliance with hemodialysis) Uremia ( due to noncompliance with hemodialysis) End-stage renal disease , on hemodialysis Acute bronchitis Diabetes mellitus with hypoglycemia Hypertension Anemia of chronic kidney disease Secondary hyperparathyroidism DISCHARGE MEDICATIONS: See Medication Reconciliation list. DISCHARGE INSTRUCTIONS: Patient was discharged [facility] encourage compliance with hemodialysis I have been assigned to dictate discharge summary for this account. I was not involved in the patient's management. Elke Stearns NP May 04, 2018 08:08
== END 2018-05-01 14:10 | DRG 291 ==
LOC: 4E 04-27 00:13
PROC: 5A1D70Z Performance of Urinary Filtration, Intermittent, Less than 6 Hours Per Day (ICD-10-PCS; principal; 2018-04-27)
PROC: 5A1D70Z Performance of Urinary Filtration, Intermittent, Less than 6 Hours Per Day (ICD-10-PCS; 2018-04-29)
DX: I13.2 Hypertensive heart and chronic kidney disease with heart failure and with stage 5 chronic kidney disease, or end stage renal disease (principal); N18.6 End stage renal disease; I50.33 Acute on chronic diastolic (congestive) heart failure; N25.81 Secondary hyperparathyroidism of renal origin; E11.22 Type 2 diabetes mellitus with diabetic chronic kidney disease; Z99.2 Dependence on renal dialysis; J20.9 Acute bronchitis, unspecified; Z91.81 History of falling; E11.649 Type 2 diabetes mellitus with hypoglycemia without coma; E87.5 Hyperkalemia; N18.9 Chronic kidney disease, unspecified; D63.1 Anemia in chronic kidney disease; Z91.15 Patient's noncompliance with renal dialysis
CPT/HCPCS: 36415; 71045; 80048; 80053; 82962; 83880; 84100; 84484; 85025; 87081; 93005; 94664; 94760